=== PATIENT | male | born 1995 | race Caucasian/White ===

== ENCOUNTER 2017-10-20 18:20 | Inpatient (IN) | payer BC ==
[~2017-10-20 18:20] MED LIST: ISOVUE-370 76%-LOCM 1 ML ONE
[2017-10-20 18:49] LABS: #Monocytes 0.6 thou/uL (0.11-0.59); #Neutrophils 7.4 thou/uL (1.40-6.50); %Basophils 0.2 % (0.0-1.0); %Eosinophils 0.5 % (0.0-10.0); %Lymphocytes 11.5 % (21.0-51.0); %Monocytes 6.2 % (0.0-10.0); %Neutrophils 81.7 % (42.0-75.0); Hemoglobin 15.8 g/dL (14.0-18.0); Mean Corpuscular HGB CONC 32.3 g/dL (32.0-36.0); Mean Corpuscular Hemoglobin 27.8 pg (27.0-31.0); Mean Corpuscular Volume 86.2 fl (80.0-94.0); Mean Platelet Volume 7.4 fL (7.4-10.4); Platelet Count 181 thou/uL (130-400); RBC Distribution Width 11.8 % (11.5-14.5); Red Blood Cell (RBC) Count 5.69 mill/uL (4.70-6.10); White Blood Cell (WBC) Count 9.1 thou/uL (4.8-10.8)
[2017-10-20 18:57] LABS: Bilirubin Negative (Negative); Blood, Urine Negative (Negative); Clarity CLEAR (Clear); Glucose, Urine (Dipstick) Negative (Negative); Leukocyte Negative (Negative); Nitrite Negative (Negative); Protein, Urine (Dipstick) Negative (Neg-Trace); Specific Gravity, Urine 1.022 (1.002-1.036); pH, Urine 7.5 (5.0-9.0)
[2017-10-20 19:12] LABS: ALT (SGPT) 14 U/L (8-55); AST (SGOT) 17 U/L (5-34); Albumin 5.2 g/dL (3.5-5.0); Alkaline Phosphatase 61 U/L (40-150); Anion Gap 13 mmol/L (10-20); BUN (Urea Nitrogen) 14 mg/dL (8.9-20.6); Bilirubin, Total 0.9 mg/dL (0.2-1.2); Calc. Creatinine Clearance 0 mL/min (70-130); Calcium 10.3 mg/dL (7.8-10.44); Carbon Dioxide 26 mmol/L (22-29); Chloride 102 mmol/L (98-107); Estimated GFR-MDRD 75; Glucose 107 mg/dL (70-105); Lipase 17 U/L (8-78); Potassium 3.8 mmol/L (3.5-5.1); Protein, Total 8.2 g/dL (6.0-8.3); Sodium 137 mmol/L (136-145)
--- NOTE | 2017-10-20 19:20 | CT ---
ABDOMEN CT WITH CONTRAST PELVIC CT WITH CONTRAST 10/20/17 HISTORY: Evaluate for appendicitis. Right lower quadrant pain. COMPARISON: None. TECHNIQUE: An abdomen and pelvic CT performed with IV contrast. Enteric contrast was not administered. Coronal reformatted images are submitted for interpretation. FINDINGS: ABDOMEN CT: The lung bases are clear. Heart size is normal. No significant pericardial fluid. The visualized aort a has a normal caliber. No periaortic fat stranding. Symmetric attenuation of the psoas muscles. Gall bladder is unremarkable. Intra and extrahepatic portal vein is patent. Liver, spleen, pancreas and adrenal glands have appropr iate enhancement. No gastrohepatic, retrocrural or periportal lymphadenopathy. No mesenteric mass, lymphadenopathy, free air or free fluid. Evaluation is limited by decreased intra abdominal fat. Symmetric enhancement of the kidneys. Bilaterally, no obstructive uropathy. Limited ev aluation of the alimentary canal due to the lack of oral contrast. gastric mucosa, duodenum and multi ple normal caliber small bowel loops are noted. Ileocecal junction appears to be unremarkable. There appears to be a normal caliber appendix emanating from the cecal apex. At the tip of the appendix the re appears to be a 1 cm appendicolith without obvious inflammation. Evaluation for inflammatory bell e adjacent the appendix is limited by decreased intraabdominal fat. There is scattered fecal material in a nondistended, nondilated colon. PELVIC CT: No mass, lymphadenopathy, free air or free fluid. IMPRESSION: Limited evaluation due to decreased intraabdominal fat and the absence of oral contrast. There is sug gestion of a normal caliber appendix without obvious periappendiceal inflammation. There does appear to be a 1 cm appendicolith which is limited in the tip of the appendix. No obvious inflammation. POS: [facility]
[2017-10-20] MEDS ORDERED: HYDROcodone/Acetaminophen 5/325 mg Tablet ONE (19:45)
[2017-10-20] MEDS ORDERED: Meropenem 2 GM in Admixture Fee 1 EACH IVPB SCH (22:30)
[2017-10-20] MEDS ORDERED: Ondansetron HCl/PF 4 MG/2 ML Vial IVP PRN (23:06)
[2017-10-20] MEDS ORDERED: Sodium Chloride 0.9% 1,000 ML IV SCH (23:06)
[2017-10-20] MEDS ORDERED: Ondansetron ODT 4 MG TAB SL PRN (23:06)
[2017-10-20] MEDS ORDERED: Acetaminophen 1,000 MG in Premix Bag 1 BAG IVPB PRN (23:20)
[2017-10-20] MEDS ORDERED: HYDROcodone/Acetaminophen 7.5/325 mg Tablet PO PRN (23:20)
[2017-10-20] MEDS ORDERED: Morphine 4 MG/ML VIAL SLOW IVP PRN (23:21)
[2017-10-20] MEDS: HYDROcodone/Acetaminophen 7.5/325 mg Tablet PO PRN (23:24)
[2017-10-20 23:45] VITALS: BMI 26.4
[2017-10-20] MEDS ORDERED: Meropenem 2 GM, Admixture Fee 1 EACH in Sodium Chloride 0.9% 100 ML IVPB SCH (23:45)
--- NOTE | 2017-10-21 01:13 | HP ---
CHIEF COMPLAINT: Abdominal pain. HISTORY OF PRESENT ILLNESS: Mr. Liz is a 22-year-old man who presented to the emergency room wit h a 1-day history of right lower quadrant pain. This came on this morning and was initially more ras tral and then radiated down into the lower abdomen. He has had nausea and anorexia, has not eaten to day, had a normal bowel movement this afternoon and denies fevers or chills. He states that standing makes the pain worse and it is a little bit better when he lies down. He reports eating some old og [employer]bur[employer] meat yesterday, but this was thoroughly cooked. No other unusual ingestions or ill contacts. PAST MEDICAL HISTORY: None. PAST SURGICAL HISTORY: None. FAMILY HISTORY: Noncontributory. SOCIAL HISTORY: The patient does not smoke, drink or use illicit drugs. PSYCHIATRIC HISTORY: Anxiety and depression. MEDICATIONS: Effexor. ALLERGIES: No known drug allergies. REVIEW OF SYSTEMS: A 10-system review of systems is negative except per HPI. The patient denies any back or flank pain, any hematuria, dysuria, urgency or frequency. PHYSICAL EXAMINATION: VITAL SIGNS: Temperature 98.8, respirations 18, heart rate 70, blood pressure 135/81, and 97% satura carlton on room air. GENERAL: Reveals a healthy appearing, thin, young man, in no acute distress. He is not flushed or t oxic in appearance. He is not jaundiced or icteric. HEENT: Unremarkable. NECK: Supple, without lymphadenopathy or thyroid nodules. HEART: Regular in its rate and rhythm without murmurs, rubs or gallops. LUNGS: Clear to auscultation bilaterally. ABDOMEN: Soft and nondistended. He is quite tender to palpation in the lower abdomen, a little more on the right than the left. He exhibits mild rebound tenderness and some voluntary guarding. No pa lpable masses or hernias. EXTREMITIES: Warm and well perfused without edema. NEUROLOGIC: No focal deficits. PSYCHIATRIC: Alert and oriented. He does not appear anxious or depressed currently. LABORATORY DATA: White count is normal, but there is a left shift. Electrolytes are unremarkable. LFTs and lipase are unremarkable. UA is clear, except for a small amount of ketones. CT images are reviewed and I agree with the written report. The patient is very thin, which limits sensitivity phan ewhat as does the lack of oral contrast. His appendix does appear to be normal caliber, but there is a large appendicolith in the tip and this was located at the point of his greatest tenderness. ASSESSMENT AND PLAN: Likely tip appendicitis related to appendicolith. The patient's diagnosis and treatment options were discussed with him and his parents. I recommend admission for IV antibiotics and laparoscopic appendectomy given the presence of the appendicolith and his symptoms, although the CT is not diagnostic as acute appendicitis. I do not feel that this can safely be ruled out given hi s thin body habitus and the presence of an appendicolith. Other options include observation alone wh ich I do not recommend and antibiotics alone again which in the case of an appendicolith I cannot rec ommend. After discussing the options, the patient and his mother have decided to proceed with laparo scopic appendectomy. He is going to be admitted to the hospital and placed on IV antibiotics. I nj l add him on to the schedule for tomorrow morning. All of their questions were answered.
[2017-10-21] MEDS: MEROPENEM 1 GM/50 ML 1 GM in Premix Bag 1 BAG IVPB SCH ×2 (05:44→12:49)
[2017-10-21] MEDS: Morphine 4 MG/ML VIAL SLOW IVP PRN ×2 (07:42→18:31)
[2017-10-21] MEDS ORDERED: Bupivacaine/Epinephrine 0.25% 30 ML VIAL ONE (10:56)
[2017-10-21] MEDS ORDERED: Midazolam HCl 2 mg/2 ml Vial ONE (11:10)
[2017-10-21] MEDS ORDERED: Fentanyl 100 MCG/2 ML VIAL ONE ×2 (11:27→12:00)
[2017-10-21] MEDS ORDERED: Promethazine HCl 25 MG/ML VIAL IM PRN (12:15)
[2017-10-21] MEDS ORDERED: Promethazine HCl 25 MG/ML VIAL SLOW IVP PRN (12:15)
[2017-10-21] MEDS ORDERED: Ondansetron HCl/PF 4 MG/2 ML Vial IVP PRN (12:15)
[2017-10-21] MEDS ORDERED: Glycopyrrolate 0.2 MG/ML 5 ML SYRINGE ONE (12:17)
[2017-10-21] MEDS ORDERED: PROPOFOL 200 MG/20 ML VIAL ONE (12:17)
[2017-10-21] MEDS ORDERED: Lidocaine 1% PF 5 ML VIAL ONE (12:17)
[2017-10-21] MEDS ORDERED: Succinylcholine Chloride 20 MG/ML 10 ml SYRINGE FS ONE (12:17)
[2017-10-21] MEDS ORDERED: Meperidine HCl/PF 25 MG/ML VIAL ONE (13:09)
[2017-10-21 14:16] VITALS: TEMP 98.2
--- NOTE | 2017-10-21 15:35 | PDOC.OP ---
Operative Note - Operative Note Operative Note: PROCEDURE: Laparoscopic appendectomy SURGEON: Russel Hackett M.D. DATE OF PROCEDURE: 10/21/2017 PREOPERATIVE DIAGNOSIS: Appendicolith, appendicitis POSTOPERATIVE DIAGNOSIS: Appendicolith, appendicitis HISTORY: Patient presented with lower abdominal pain and physical exam findings concerning for appendicitis. CT did not reveal definite appendicitis but he had a large appendicolith in the tip of his appendix. Recommendation was made to proceed with appendectomy. FINDINGS: Tip appendicitis without perforation. DESCRIPTION OF PROCEDURE: After informed consent was obtained and appropriate antibiotics continued, the patient was taken to the operating room and placed in the supine position and general endotracheal anesthesia was administered. The bladder was decompressed with a Snider catheter and the abdomen was prepped and draped in the standard sterile fashion. Local anesthesia was infused to the skin and subcutaneous tissues superior to the umbilicus. A transverse skin incision was made and a Veress needle placed into the abdominal cavity and carbon dioxide gas insufflated without difficulty. Opening pressure was less than 5. Carbon dioxide gas was insufflated to an intra-abdominal pressure 15 and the patient tolerated this well. The Veress needle was withdrawn and a Bear port attempted to be advanced under direct laparoscopic vision into the abdominal cavity, but due to the very dense nature of his fascia could not be advanced through the fascia. The fascia was incised and the peritoneum drawn up and incised and the abdomen entered under direct vision. The trocar was placed into the abdominal cavity which was carefully examined. There was some insufflation into the fatty tissue underlying the umbilical trocar which was attributable to the Veress needle but no evidence of bowel injury or bleeding. Two additional ports were placed in the suprapubic and left lateral abdomen under direct laparoscopic vision after local anesthesia was infused at these sites. The appendix was identified and the base was normal but the tip appeared inflamed but not perforated. The appendix was grasped by the mesoappendix and elevated. The mesoappendix was then sequentially ligated and divided down to the base of the appendix, which was normal in appearance and was clearly seen to be at the confluence of the tenia. Two Endoloops were placed around the base of the appendix and the appendix was divided between these Endoloops, placed into an EndoCatch bag and drawn out through the suprapubic incision. The suprapubic trocar was then replaced and the operative site was easily irrigated to clear. There was some slightly cloudy fluid in the pelvis which was easily irrigated to clear. Attention was then turned to the fatty tissue with gas insufflated into it. A small puncture was identified between the colon and the lower edge of the stomach which was felt to be the site where the Veress of insufflated gas into these tissues. This was well away from both the colon and the stomach and there was no evidence of bleeding or injury. The suprapubic trocar was removed and the fascia closed under direct laparoscopic vision with a 0 Vicryl suture on a GraNee needle with excellent technical result. The left lateral trocar was then removed and hemostasis verified. Carbon dioxide gas was desufflated through the umbilical trocar which was then removed. The umbilical fascia was closed under direct vision with the 0 Vicryl suture on a UR 6 needle. The skin incisions were irrigated and additional local anesthesia infused at each site. The skin was closed with 4-0 subcuticular Monocryl sutures and Dermabond dressings were placed. The patient was extubated and taken to the recovery room in good condition. Estimated blood loss was minimal. There were no complications. SPECIMEN: Appendix.
[2017-10-21] MEDS: HYDROcodone/Acetaminophen 7.5/325 mg Tablet PO PRN (16:11)
[2017-10-21 16:20] VITALS: BP 109/72
== END 2017-10-21 19:14 | disposition home or self-care (01) | DRG 343 ==
LOC: ERS 18:20 → SURG A 22:20
PROVIDERS: ADMIT Surgery; ATTEND Surgery
PROC: 0DTJ4ZZ Resection of Appendix, Percutaneous Endoscopic Approach (ICD-10-PCS; principal; 2017-10-21)
DX: K37 Unspecified appendicitis (principal); F32.9 Major depressive disorder, single episode, unspecified; F41.9 Anxiety disorder, unspecified; K38.1 Appendicular concretions
CPT/HCPCS: 74177; 80053; 81003; 83690; 85025; 88304; A4216; J2001; J2175; J2185; J2250; J2270; J2704; J3010; J7050